=== PATIENT | male | born 1980 | race Caucasian/White ===

== ENCOUNTER 2020-04-17 08:49 | Emergency (ER) | payer MEDICAID, SELFPAY ==
[2020-04-17 08:56] VITALS: BP 172/115; PULSE 97; RESP 18; TEMP 36.7; O2SAT 97; BMI 41.5
--- NOTE | 2020-04-17 08:57 | HMH.EDGENADL ---
ED Disposition Clinical Impression: Impetigo Disposition: Home, Self-Care Condition on Discharge: Good Instructions: DI for Impetigo Additional Instructions: Follow-up with your primary care provider within the next 1 to 2 days for reevaluation. Return to the emergency department if you develop eye pain, visual changes, acute worsening of symptoms. - Critical Care Critical Care Time: No Attestation: On , the high probability of a clinically significant, sudden or life threatening deterioration of the following system(s) required my full and direct attention, intervention and personal management. The time I documented below is in addition to time spent performing reported procedures but includes the following listed in this critical care notation. Medical Decision Making - Medical Records Medical records reviewed: Yes: I reviewed the patient's medical records. - Ritesh Inquiry Pt receiving controlled substance: No Medical Decision Narrative: Suspect impetigo versus contact dermatitis. There is a vesicular component though the rash is nonpruritic, so this certainly could be a plant-based contact dermatitis, but the appearance on exam seems more consistent with impetigo. Will cover with both, given Bactrim and prednisone here with prolonged taper of steroids outpatient in the event this is a plant-based contact dermatitis and 7 days of Bactrim in the event this is impetigo. There are no signs of orbital cellulitis. Patient denies any visual changes at this time. I encouraged close follow-up with primary care provider within the next several days for reevaluation. General Adult HPI - General Stated complaint: right side of face swollen and rash Time Seen by Provider: 04/17/20 08:57 Mode of Arrival: Ambulatory Source of Information: Patient Limitations: No Limitations - History of Present Illness HPI narrative: This is a 39-year-old male with no significant past medical history who presents to the emergency department for rash on the right side of the face that has extended to the right upper eyelid. He denies any ocular pain, no ophthalmoplegia, no visual changes. He thinks that he may have been exposed to poison sumac as he was driving a piece of equipment and went through a tree branch with what looked like poison sumac. The next day he started having some pain on his eyebrow and then started developing rash along his hairline, right forehead, right upper eyelid. He denies any fevers, vomiting, diarrhea. He has not tried any medications. The rash is not pruritic. [facility] History - Hepatitis A Screen Attestation statement:: This patient has been screened for Hepatitis A risk factors. I have reviewed the patient's past medical history: Yes (Noncontributory) ROS Obtained: Yes All systems reviewed & no additional complaints Physical Exam - General General appearance: alert, in no apparent distress - Head Head exam: atraumatic, normocephalic - Eye Eye exam: Present: PERRL, EOMI, other (Swelling of the right upper eyelid with some erythema, no swelling below the eye. No ophthalmoplegia.). Absent: conjunctival redness - Neck Neck exam: Present: normal inspection, trachea midline - Respiratory Respiratory exam: Absent: respiratory distress - Cardiovascular Cardiovascular exam: Present: regular rate, normal rhythm - Neurological Exam Neurological exam: Present: alert, oriented X3 - Skin Skin exam: Present: warm, dry, other (Vesicular rash with erythematous base on the right upper forehead extending slightly into the hairline, right eyebrow and right upper eyelid. There is martin crusting as well.)
[2020-04-17 09:24] VITALS: BP 150/90; PULSE 89; RESP 18; TEMP 36.7; O2SAT 97
== END 2020-04-17 09:25 | disposition home or self-care (01) ==
LOC: ER 09:11
PROVIDERS: Emergency Provider Emergency Medicine
DX: L01.00 Impetigo, unspecified (principal)
CPT/HCPCS: 99281

== ENCOUNTER 2020-12-25 22:59 | Emergency (ER) | payer BC, SELFPAY ==
--- NOTE | 2020-12-25 22:57 | ECG_ITS ---
APPROVED REPORT Exam: Resting ECG HR:92 bpm ECG Measurements Heart Rate 92 AXES NJ 158 P 31 QRSd 104 QRS -2 QT 358 T 18 QTc 442 Conclusion Normal sinus rhythm Incomplete right bundle branch block Borderline ECG Electronically signed by : Ty Lundberg, 12/26/2020 18:50:36
[2020-12-25 23:00] VITALS: BP 198/124; PULSE 102; RESP 16; TEMP 37.1; O2SAT 98; BMI 42.8
--- NOTE | 2020-12-25 23:00 | XR_ITS ---
PROCEDURE INFORMATION: Exam: XR Chest Exam date and time: 12/25/20 11:00 PM Age: 39 years old Clinical indication: Chest pressure; Patient HX: Chest pain; Additional info: Cp TECHNIQUE: Imaging protocol: XR of the chest. Views: 2 views. COMPARISON: No relevant prior studies available. FINDINGS: Lungs: Unremarkable. No consolidation. Pleural spaces: Unremarkable. No pleural effusion. No pneumothorax. Heart/Mediastinum: Unremarkable. No cardiomegaly. Bones/joints: Unremarkable. IMPRESSION: No acute findings.
[2020-12-25 23:09] VITALS: BP 196/122
[2020-12-25 23:10] LABS: Basophils # 0.1 K/mm3 (0-0.2); Basophils % 0.6 % (0.1-2.0); Eosinophils # 0.3 K/mm3 (0.0-0.4); Eosinophils % 2.8 % (0.1-12.0); Hematocrit 45.1 % (42.0-52.0); Hemoglobin 15.9 g/dL (14.1-18.0); Lymphocytes # 2.2 K/mm3 (0.7-4.5); Lymphocytes % 19.8 % (10-50); Mean Corpuscular HGB Conc 35.3 g/dL (31.8-35.4); Mean Corpuscular Hemoglobin 30.4 pg (27.0-31.2); Mean Platelet Volume 7.3 fl (7.4-10.4); Monocytes # 0.7 K/mm3 (0.1-1.0); Monocytes % 5.8 % (1.7-9.3); Neutrophils % 70.9 % (37.0-80.0); Platelet Count 233 K/mm3 (142-424); Red Blood Count 5.24 M/mm3 (4.60-6.20); Red Cell Distribution Width 13.6 % (11.5-17.5); White Blood Count 11.2 K/mm3 (4.8-10.8)
[2020-12-25 23:23] LABS: Anion Gap 13.6 mEq/L (5-15); Blood Urea Nitrogen 11 mg/dl (9-20); Calcium 8.7 mg/dl (8.4-10.2); Carbon Dioxide 26 mmol/L (22.0-30.0); Chloride 104 mmol/L (98-107); Creatinine Clearance Estimated 82 mL/min (50-200); Estimated Glomerular Filt Rate 67 ml/min (>60); GFR (African American) 81 ML/MIN (>60); Glucose 98 mg/dl (74-100); Potassium 3.6 mmoL/L (3.5-5.1); Sodium 140 mmol/L (136-145)
[2020-12-25 23:28] LABS: C-Reactive Protein 0.8 mg/L (0-4)
[2020-12-25 23:30] VITALS: BP 172/110; PULSE 88; RESP 13; O2SAT 96
[2020-12-25 23:37] LABS: Troponin I < 0.01 ng/ml (0.00-0.034)
[2020-12-25 23:42] LABS: Procalcitonin 0.061 ng/mL (0.0-2.0)
[2020-12-26] VITALS: BP 157/101; PULSE 89; RESP 12; O2SAT 98
--- NOTE | 2020-12-26 00:47 | HMH.EDCP ---
ED Disposition Clinical Impression: Hypertensive urgency Chest pain Qualifiers: Chest pain type: precordial pain Qualified Code(s): R07.2 - Precordial pain Obesity Qualifiers: Obesity type: due to excess calories Obesity classification: adult class 3 (BMI >= 40) Serious obesity comorbidity presence: with serious comorbidity Body mass index: BMI 40.0-44.9 Qualified Code(s): E66.01 - Morbid (severe) obesity due to excess calories; Z68.41 - Body mass index [BMI]40.0-44.9, adult Disposition: Home, Self-Care Condition on Discharge: Good Instructions: DI for Chest Pain Additional Instructions: see pcp for follow up Prescriptions: lisinopriL [Lisinopril] 10 mg PO DAILY #21 tab Transmission Status: Pending to [facility] #[id number] Referrals: Provider,Referral, [Primary Care Provider] - - Critical Care Critical Care Time: No Attestation: On 12/25/20, the high probability of a clinically significant, sudden or life threatening deterioration of the following system(s) required my full and direct attention, intervention and personal management. The time I documented below is in addition to time spent performing reported procedures but includes the following listed in this critical care notation. Medical Decision Making - Medical Records Medical records reviewed: Yes: I reviewed the patient's medical records. - Ritesh Inquiry Pt receiving controlled substance: No Vital Signs: 12/25/20 23:00 12/25/20 23:09 12/25/20 23:30 Temperature 98.7 F Temperature Source Oral Pulse Rate 88 Pulse Rate [Right] 102 H Respiratory Rate 16 13 Blood Pressure 196/122 H 172/110 H Blood Pressure [Right Arm] 198/124 H Blood Pressure Mean [Right Arm] 148 Blood Pressure Source Manual Cuff/ Auscultation 02 Sat by Pulse Oximetry 98 96 12/26/20 00:00 Temperature Temperature Source Pulse Rate 89 Pulse Rate [Right] Respiratory Rate 12 Blood Pressure 157/101 H Blood Pressure [Right Arm] Blood Pressure Mean [Right Arm] Blood Pressure Source 02 Sat by Pulse Oximetry 98 - Lab Data Lab results reviewed: Yes: I reviewed the patient's lab results. Lab Results 12/25/20 23:00: WBC 11.2 H, RBC 5.24, Hgb 15.9, Hct 45.1, MCV 86.0, MCH 30.4, MCHC 35.3, RDW 13.6, Plt Count 233, MPV 7.3 L, Neut % (Auto) 70.9, Lymph % (Auto) 19.8, [place] % (Auto) 5.8, Eos % (Auto) 2.8, Baso % (Auto) 0.6, Neut # (Auto) 8.0 H, Lymph # (Auto) 2.2, [place] # (Auto) 0.7, Eos # (Auto) 0.3, Baso # (Auto) 0.1 12/25/20 23:00: Sodium 140, Potassium 3.6, Chloride 104, Carbon Dioxide 26, Anion Gap 13.6, BUN 11, Creatinine 1.20, Estimated Creat Clear 82, Estimated GFR 67, Est GFR ( Amer) 81, Glucose 98, Calcium 8.7, Troponin I < 0.01 12/25/20 23:00: C-Reactive Protein 0.8, Procalcitonin 0.061 Result diagrams: 12/25/20 23:00 12/25/20 23:00 Orders (Tests/Meds): ED MEDICATIONS Discontinued Medications Generic Name Dose Route Start Last Admin Trade Name Freq PRN Reason Stop Dose Admin Aspirin 324 mg 12/25/20 23:07 12/25/20 23:12 Aspirin 81mg Chewable Tablet PO 12/25/20 23:08 324 mg ONCE ONE Administration Clonidine HCl 0.1 mg 12/25/20 23:10 12/25/20 23:13 Clonidine 0.1mg Tablet PO 12/25/20 23:11 0.1 mg ONCE ONE Administration ORDERS Category Date Time Status Erythrocyte Sedimentation Rate Stat Lab 12/25/20 23:00 Received Troponin I Q3H Lab 12/26/20 02:00 Ordered Troponin I Q3H Lab 12/26/20 05:00 Ordered - Radiology Data #1 Image(s): Chest Image Reviewed: Yes I have reviewed radiologist's interpretation Preliminary Findings: Normal/NAD - ECG Data Tracing #1 Normal Sinus Rhythm: Yes Ischemic changes: non-specific ST-T wave changes Medical Decision Narrative: uncontrolled htn and atypical chest pain Chest Pain HPI - General Chief Complaint: Chest Pain Stated Complaint: CP Time Seen by Provider: 12/25/20 23:10 Mode of Arrival: Ambulatory Source of Information
[2020-12-26 02:04] LABS: Erythrocyte Sedimentation Rate 3 mm/hr (0-15)
[2020-12-26 02:15] LABS: Troponin I < 0.01 ng/ml (0.00-0.034)
[2020-12-26 02:47] VITALS: BP 145/91; PULSE 89; RESP 16; TEMP 37.1; O2SAT 97
== END 2020-12-26 02:48 | disposition home or self-care (01) ==
PROVIDERS: Emergency Provider Emergency Medicine
DX: I16.0 Hypertensive urgency (principal); R07.2 Precordial pain; E66.01 Morbid (severe) obesity due to excess calories; Z68.41 Body mass index [BMI] 40.0-44.9, adult
CPT/HCPCS: 71046; 80048; 84145; 84484; 85025; 85651; 86140; 93005; 96365; 99283